=== PATIENT | female | born 1990 | race African-American/Black ===

== ENCOUNTER 2017-11-05 11:09 | Emergency (ER) | payer MEDICAID ==
[~2017-11-05] VITALS: Ht 167.6 cm; Wt 78.0 kg
[2017-11-05 11:13] VITALS: BP 136/86
--- NOTE | 2017-11-05 11:16 | NUR ---
Patient ambulated to bed 12. RN evaluating patient at bedside.
--- NOTE | 2017-11-05 11:25 | NUR ---
PT. CAME INTO THE ED DUE TO RLQ PAIN THAT RADIATES TO HER R BACK. PT STATES " THIS STARTED ABOUT 3 DAYS AGO I HAVE TO GO PEE FREQUENTLY AND MY R SIDE OF MY STOMACH HURTS LIKE A CRAMPING". 2/10 PAIN IN RLQ THAT IS DESCRIBED CRAMPING AND RADIATES TO HER BACK. PT. DENIES ANY PAINFUL URINATION BUT DOES STATE SHE IS HAVING FREQUENCY. PT. STATES " I AM 7 WEEKS ". [id number].DENIES ANY VAGINAL BLEEDING OR FOUL SMELLING DISCHARGE. 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 RR EVEN AND UNLABORED. FAMILY MEMBER AT BEDSIDE. ER MD NOTIFIED. WILL CONTINUE TO MONITOR.
--- NOTE | 2017-11-05 11:52 | NUR ---
US tech at bedside for exam.
[2017-11-05 12:13] LABS: BASOPHILS % (AUTO) 0.3 % (0.0-2.0); EOSINOPHILS # (AUTO) 0.1 K/uL (0-0.4); EOSINOPHILS % (AUTO) 0.7 % (0.0-4.0); HEMATOCRIT 37.6 % (36-48); HEMOGLOBIN 12.1 g/dL (12.0-16.0); LYMPHOCYTES # (AUTO) 2.4 K/uL (2.5-16.5); LYMPHOCYTES % (AUTO) 21.3 % (20.5-51.1); MEAN CORPUSCULAR HEMOGLOBIN 29 pg (27-31); MEAN CORPUSCULAR HGB CONC 32 g/dL (33-37); MEAN CORPUSCULAR VOLUME 89.4 fL (80-94); MONOCYTES % (AUTO) 8.5 % (1.7-9.3); NEUTROPHILS # (AUTO) 7.8 K/uL (1.8-7.7); NEUTROPHILS % (AUTO) 69.2 % (42.2-75.2); PLATELET COUNT (AUTO) 311 K/uL (140-450); RED BLOOD CELL COUNT(AUTO) 4.21 MIL/uL (4.20-5.40); RED CELL DISTRIBUTION WIDTH 13.3 % (11.6-13.7); WHITE BLOOD COUNT (AUTO) 11.2 K/uL (4.8-10.8)
--- NOTE | 2017-11-05 12:30 | NUR ---
PT. RESTING COMFORTABLY IN BED , RR EVEN AND UNLABORED. FAMILY MEMBER AT BEDSIDE. WILL CONTINUE TO MONITOR.
[2017-11-05 13:21] LABS: APPEARANCE,URINE CLEAR (CLEAR); BILIRUBIN,URINE NEGATIVE (NEGATIVE); BLOOD, URINE TRACE-I (NEGATIVE); COLOR,URINE YELLOW (YELLOW); NITRITE, URINE NEGATIVE (NEGATIVE); PH,URINE 7.5 (5.0-9.0); UGLUCOSE NEGATIVE (NEGATIVE)
[2017-11-05] MEDS ORDERED: CEPHALEXIN 500 MG CAP PO ONE (13:30)
--- NOTE | 2017-11-05 13:30 | NUR ---
PT RESTING IN BED COMFROTABLY. NO S/S OF DISTRESS NOTED
[2017-11-05 13:33] LABS: LEUKOCYTE ESTERASE ,URINE 1+ (NEGATIVE)
[2017-11-05 13:34] LABS: RBC,URINE 0-5 (RARE) /HPF (0-5); WBC,URINE 0-5 (RARE) /HPF (0-5)
[2017-11-05 14:37] VITALS: BP 126/82
--- NOTE | 2017-11-05 14:37 | NUR ---
Patient discharged with v/s stable. Written and verbal after care instructions given and explained. Patient alert, oriented and verbalized understanding of instructions. Ambulatory with steady gait. All questions addressed prior to discharge. ID band removed. Patient advised to follow up with PMD. Rx of AMPICILLIN 500MG given. Patient educated on indication of medication including possible reaction and side effects. Opportunity to ask questions provided and answered.
== END 2017-11-05 14:37 | disposition home or self-care (01) ==
LOC: MED 11:09
DX: O23.41 Unspecified infection of urinary tract in pregnancy, first trimester (principal); Z3A.01 Less than 8 weeks gestation of pregnancy; Z31.82 Encounter for Rh incompatibility status; Z88.1 Allergy status to other antibiotic agents; E28.2 Polycystic ovarian syndrome
CPT/HCPCS: 36415; 76817; 81001; 81025; 84702; 85025; 86900; 86901; 87086; 99285; Q0092

== ENCOUNTER 2018-03-09 08:15 | Observation (INO) | payer MEDICAID, OTHER ==
[2018-03-09] MEDS ORDERED: FERR325E14 PO (08:35)
[2018-03-09] MEDS ORDERED: PREN-380 PO (08:35)
[2018-03-09 08:36] VITALS: BP 115/63
[2018-03-09 12:19] LABS: APPEARANCE,URINE CLEAR (CLEAR); BILIRUBIN,URINE NEGATIVE (NEGATIVE); BLOOD, URINE TRACE-L (NEGATIVE); COLOR,URINE YELLOW (YELLOW); LEUKOCYTE ESTERASE ,URINE NEGATIVE (NEGATIVE); NITRITE, URINE NEGATIVE (NEGATIVE); UGLUCOSE NEGATIVE (NEGATIVE)
== END 2018-03-09 13:20 | disposition home or self-care (01) ==
LOC: MLD 08:15
PROVIDERS: ADMIT Obstetrics & Gynecology; ATTEND Obstetrics & Gynecology
DX: O46.92 Antepartum hemorrhage, unspecified, second trimester (principal); Z3A.23 23 weeks gestation of pregnancy
CPT/HCPCS: 76805; 81003; G0378; Q0092